=== PATIENT | male | born 1975 | race Caucasian/White ===

== ENCOUNTER 2017-10-14 12:40 | Emergency (ER) | payer BC ==
[2017-10-14 12:44] VITALS: RESP 18; TEMP 97.9
[2017-10-14 13:23] LABS: Basophils % (A) 0 %; Eosinophils # (A) 0.2 k/uL (0-0.7); Eosinophils % (A) 2 %; HCT 46.4 % (39.0-53.0); HGB 16.3 gm/dL (13.0-17.5); Lymphocytes # (A) 2.3 k/uL (1.0-4.8); Lymphocytes % (A) 24 %; MCH 32.9 pg (25.0-35.0); MCHC 35.1 g/dL (31.0-37.0); MCV 93.9 fL (80.0-100.0); Mean Platelet Volume 8.7; Monocytes # (A) 0.5 k/uL (0-1.0); Monocytes % (A) 5 %; Neutrophils # (A) 6.4 k/uL (1.3-7.7); Neutrophils % (A) 67 %; Platelet Count 176 k/uL (150-450); RBC 4.93 m/uL (4.30-5.90); RDW 12.7 % (11.5-15.5); WBC 9.5 k/uL (3.8-10.6)
[2017-10-14 13:32] LABS: ALT 35 U/L (21-72); AST 22 U/L (17-59); Albumin 4.4 g/dL (3.5-5.0); Alkaline Phosphatase 49 U/L (38-126); Amylase 90 U/L (30-110); Anion Gap 15 mmol/L; Blood Urea Nitrogen 13 mg/dL (9-20); Calcium 9.6 mg/dL (8.4-10.2); Carbon Dioxide 22 mmol/L (22-30); Chloride 106 mmol/L (98-107); Glucose 111 mg/dL (74-99); INR 1.1 (<1.2); Lipase 401 U/L (23-300); Partial Thromboplastin Time 25.5 sec (22.0-30.0); Potassium 4.1 mmol/L (3.5-5.1); Prothrombin Time 10.7 sec (9.0-12.0); Sodium 143 mmol/L (137-145); Total Bilirubin 0.4 mg/dL (0.2-1.3); Total Protein 7.2 g/dL (6.3-8.2)
--- NOTE | 2017-10-14 13:40 | ED ---
General Adult HPI - General Chief complaint: Abdominal Pain Stated complaint: Rt side and flank pain Time Seen by Provider: 10/14/17 12:45 Source: patient, RN notes reviewed Mode of arrival: ambulatory Limitations: no limitations - History of Present Illness Initial comments: 42-year-old male presents with right flank pain and right upper quadrant abdominal pain for the past 24 hours. Patient states the pain was constant yesterday evening, was improved this morning when he woke and then has steadily worsened throughout the day. Pain is dull and aching in nature. He has had some nausea and no vomiting or diarrhea. Denies fever or chills. Patient denies any dysuria or hematuria. Denies groin or scrotal pain. Denies cough but has had some dyspnea over the past 2 days as well. - Related Data Home Medications Medication Instructions Recorded Confirmed Carisoprodol [Soma] 350 mg PO Q6H PRN 10/14/17 10/14/17 HYDROcodone/APAP 5-325MG [[place] 1 tab PO TID PRN 10/14/17 10/14/17 5-325] SUMAtriptan SUCCINATE [[place] 6 mg SQ DAILY PRN 10/14/17 10/14/17 Dosepro] Allergies Allergy/AdvReac Type Severity Reaction Status Date / Time No Known Allergies Allergy Verified 10/14/17 13:08 Review of Systems ROS Statement: Those systems with pertinent positive or pertinent negative responses have been documented in the HPI. ROS Other: All systems not noted in ROS Statement are negative. Past Medical History Past Medical History: No Reported History Additional Past Medical History / Comment(s): migraines History of Any Multi-Drug Resistant Organisms: None Reported Past Surgical History: Back Surgery Additional Past Surgical History / Comment(s): neck surgery Past Psychological History: No Psychological Hx Reported Smoking Status: Current every day smoker Past Alcohol Use History: None Reported Past Drug Use History: None Reported General Exam Limitations: no limitations General appearance: alert, in no apparent distress Head exam: Present: atraumatic, normocephalic Eye exam: Present: normal appearance, PERRL, EOMI ENT exam: Present: normal exam Neck exam: Present: normal inspection. Absent: tenderness, meningismus Respiratory exam: Present: normal lung sounds bilaterally. Absent: respiratory distress Cardiovascular Exam: Present: regular rate, normal rhythm GI/Abdominal exam: Present: soft, tenderness (Right upper quadrant tenderness). Absent: distended, guarding, rebound Extremities exam: Present: normal inspection, full ROM. Absent: tenderness Back exam: Present: CVA tenderness (R) Neurological exam: Present: alert, oriented X3, CN II-XII intact. Absent: motor sensory deficit Psychiatric exam: Present: normal affect, normal mood Skin exam: Present: warm, dry, intact. Absent: cyanosis, diaphoretic Course Vital Signs 10/14/17 10/14/17 12:41 13:59 Temperature 97.9 F Pulse Rate 102 H 87 Respiratory 18 18 Rate Blood Pressure 144/93 137/70 O2 Sat by Pulse 99 100 Oximetry Medical Decision Making - Medical Decision Making 42-year-old male with right flank pain and right upper quadrant pain. On examination patient does have some tenderness in the right upper quadrant. Laboratory studies reveal mild elevated lipase at 400, AST and LTR within normal limits. Ultrasound is obtained, this negative for any acute gallbladder or liver pathology. X-ray of the chest and abdomen are unremarkable. Urinalysis is clear with no signs of infection. White blood cell count normal hemoglobin stable. Patient is feeling better on reevaluation skull vital signs remained stable. He will follow-up with his primary care physician return with worsening symptoms. - Lab Data Result diagrams: 10/14/17 13:07 10/14/17 13:07 Lab Results 10/14/17 10/14/17 10/14/17 Range/Units 13:07 13:07 13:07 WBC 9.5 (3.8-10.6) k/uL RBC 4.93 (4.30-5.90) m/uL Hgb 16.3 (13.0-17.5) gm/dL Hct 46.4 (39.0-53.0) % MCV 93.9 (80.0-100.0) fL MCH 32.9 (25.0-35.0) pg MCHC 35.1 (31.0-37.0) g/dL RDW 12.7 (11.5-15.5) % Plt Count 176 (150-450) k/uL Neutrophils % 67 % Lymphocytes % 24 % Monocytes % 5 % Eosinophils % 2 % Basophils % 0 % Neutrophils # 6.4 (1.3-7.7) k/uL Lymphocytes # 2.3 (1.0-4.8) k/uL Monocytes # 0.5 (0-1.0) k/uL Eosinophils # 0.2 (0-0.7) k/uL Basophils # 0.0 (0-0.2) k/uL PT (9.0-12.0) sec INR (<1.2) APTT (22.0-30.0) sec Sodium 143 (137-145) mmol/L Potassium 4.1 (3.5-5.1) mmol/L Chloride 106 (98-107) mmol/L Carbon Dioxide 22 (22-30) mmol/L Anion Gap 15 mmol/L BUN 13 (9-20) mg/dL Creatinine 0.76 (0.66-1.25) mg/dL Est GFR (CKD-EPI)AfAm >90 (>60 ml/min/1.73 sqM) Est GFR (CKD-EPI)NonAf >90 (>60 ml/min/1.73 sqM) Glucose 111 H (74-99) mg/dL Calcium 9.6 (8.4-10.2) mg/dL Total Bilirubin 0.4 (0.2-1.3) mg/dL AST 22 (17-59) U/L ALT 35 (21-72) U/L Alkaline Phosphatase 49 (38-126) U/L NT-Pro-B Natriuret Pep <11 pg/mL Total Protein 7.2 (6.3-8.2) g/dL Albumin 4.4 (3.5-5.0) g/dL Amylase 90 (30-110) U/L Lipase 401 H (23-300) U/L Urine Color Urine Appearance (Clear) Urine pH (5.0-8.0) Ur Specific [place] (1.001-1.035) Urine Protein (Negative) Urine Glucose (UA) (Negative) Urine Ketones (Negative) Urine Blood (Negative) Urine Nitrite (Negative) Urine Bilirubin (Negative) Urine Urobilinogen (<2.0) mg/dL Ur Leukocyte Esterase (Negative) 10/14/17 10/14/17 Range/Units 13:07 15:20 WBC (3.8-10.6) k/uL RBC (4.30-5.90) m/uL Hgb (13.0-17.5) gm/dL Hct (39.0-53.0) % MCV (80.0-100.0) fL MCH (25.0-35.0) pg MCHC (31.0-37.0) g/dL RDW (11.5-15.5) % Plt Count (150-450) k/uL Neutrophils % % Lymphocytes % % Monocytes % % Eosinophils % % Basophils % % Neutrophils # (1.3-7.7) k/uL Lymphocytes # (1.0-4.8) k/uL Monocytes # (0-1.0) k/uL Eosinophils # (0-0.7) k/uL Basophils # (0-0.2) k/uL PT 10.7 (9.0-12.0) sec INR 1.1 (<1.2) APTT 25.5 (22.0-30.0) sec Sodium (137-145) mmol/L Potassium (3.5-5.1) mmol/L Chloride (98-107) mmol/L Carbon Dioxide (22-30) mmol/L Anion Gap mmol/L BUN (9-20) mg/dL Creatinine (0.66-1.25) mg/dL Est GFR (CKD-EPI)AfAm (>60 ml/min/1.73 sqM) Est GFR (CKD-EPI)NonAf (>60 ml/min/1.73 sqM) Glucose (74-99) mg/dL Calcium (8.4-10.2) mg/dL Total Bilirubin (0.2-1.3) mg/dL AST (17-59) U/L ALT (21-72) U/L Alkaline Phosphatase (38-126) U/L NT-Pro-B Natriuret Pep pg/mL Total Protein (6.3-8.2) g/dL Albumin (3.5-5.0) g/dL Amylase (30-110) U/L Lipase (23-300) U/L Urine Color Light Yellow Urine Appearance Clear (Clear) Urine pH 6.5 (5.0-8.0) Ur Specific [place] 1.010 (1.001-1.035) Urine Protein Negative (Negative) Urine Glucose (UA) Negative (Negative) Urine Ketones Negative (Negative) Urine Blood Negative (Negative) Urine Nitrite Negative (Negative) Urine Bilirubin Negative (Negative) Urine Urobilinogen <2.0 (<2.0) mg/dL Ur Leukocyte Esterase Negative (Negative) Disposition Clinical Impression: Abdominal pain, Flank pain Disposition: HOME SELF-CARE Condition: Good Instructions: Abdominal Pain (ED) Is patient prescribed a controlled substance at d/c from ED?: No Referrals: Jim Lao DO [Primary Care Provider] - 1-2 days Time of Disposition: 16:02
--- NOTE | 2017-10-14 14:08 | XR ---
EXAMINATION TYPE: XR chest 2V DATE OF EXAM: 10/14/2017 COMPARISON: 09/02/2011 HISTORY: Shortness of breath and right upper quadrant pain TECHNIQUE: Frontal and lateral views of the chest are obtained. FINDINGS: There is no focal air space opacity, pleural effusion, or pneumothorax seen. The cardiac silhouette size is upper limits of normal. The osseous structures are intact. IMPRESSION: No acute cardiopulmonary process.
--- NOTE | 2017-10-14 14:14 | XR ---
EXAMINATION TYPE: XR KUB DATE OF EXAM: 10/14/2017 1:58 PM CLINICAL HISTORY: Shortness of breath and right upper quadrant pain for 2 days TECHNIQUE: Single upright image of the abdomen is obtained. COMPARISON: None. FINDINGS: Scattered gas is seen in non-distended small bowel loops. Gas and fecal material is seen in non-distended colon. There is no visceromegaly, pneumoperitoneum, or abnormal calcification apprecia surya. The lung bases are clear and the osseous structures are intact. There is bilateral mild femoral acetabular arthropathy demonstrated as acetabular roof sclerosis. Minimal levoscoliotic curvature of the lumbar spine may relate to patient positioning. IMPRESSION: Nonobstructive bowel gas pattern.
[2017-10-14] MEDS ORDERED: KETOROLAC 30 MG/ML 1 ML VIAL IVP STA (14:29)
[2017-10-14] MEDS ORDERED: SODIUM CHLORIDE 0.9% 500 ML IV ONE (14:29)
[2017-10-14] MEDS ORDERED: SODIUM CHLORIDE 0.9% 1,000 ML IV ONE (15:19)
[2017-10-14 15:47] LABS: Appearance,Urine Clear (Clear); Bilirubin,Urine Negative (Negative); Blood,Urine Negative (Negative); Color,Urine Light Yellow; Glucose,Urine (UA) Negative (Negative); Ketones,Urine Negative (Negative); Leukocyte Esterase,Urine Negative (Negative); Nitrite,Urine Negative (Negative); PH, Urine 6.5 (5.0-8.0); Protein,Urine Negative (Negative); Urobilinogen,Urine <2.0 mg/dL (<2.0)
--- NOTE | 2017-10-14 15:54 | US ---
EXAMINATION TYPE: US gallbladder DATE OF EXAM: 10/14/2017 COMPARISON: NONE CLINICAL HISTORY: Abdominal pain. EXAM MEASUREMENTS: Liver Length: 14.1 cm Gallbladder Wall: 0.3 cm CBD: 0.3 cm Right Kidney: 10.2 x 5.3 x 5.0 cm Pancreas: Obscured by bowel gas Liver: wnl Gallbladder: wnl Evidence for sonographic Tesfaye's sign: no CBD: wnl Right Kidney: wnl IMPRESSION: No sonographic evidence of cholelithiasis, acute cholecystitis, or right-sided hydronephr osis.
[2017-10-14 16:36] VITALS: BP 126/74; PULSE 74
== END 2017-10-14 16:34 | disposition home or self-care (01) ==
LOC: EC 12:40
DX: R10.11 Right upper quadrant pain (principal); R74.8 Abnormal levels of other serum enzymes; R11.0 Nausea; R06.00 Dyspnea, unspecified; F17.200 Nicotine dependence, unspecified, uncomplicated; Z53.8 Procedure and treatment not carried out for other reasons
CPT/HCPCS: 36415; 83880; 80053; 82150; 83690; 85025; 85610; 85730; 81003; 71046; 74018; 76705; 99284; 96374; J1885

== ENCOUNTER 2018-08-10 07:59 | Emergency (ER) | payer BC ==
[2018-08-10 08:02] VITALS: TEMP 97.8
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
[2018-08-10] MEDS ORDERED: SODIUM CHLORIDE 0.9% 1,000 ML IV STA (08:24)
[2018-08-10] MEDS ORDERED: ONDANSETRON 4 MG/2 ML VIAL IVP STA (08:25)
[2018-08-10] MEDS ORDERED: KETOROLAC 30 MG/ML 1 ML VIAL IVP STA (08:25)
[2018-08-10 08:49] LABS: Basophils # (A) 0.1 k/uL (0-0.2); Basophils % (A) 1 %; Eosinophils # (A) 0.3 k/uL (0-0.7); Eosinophils % (A) 4 %; HCT 47.9 % (39.0-53.0); HGB 15.7 gm/dL (13.0-17.5); Lymphocytes # (A) 2.2 k/uL (1.0-4.8); Lymphocytes % (A) 26 %; MCH 31.7 pg (25.0-35.0); MCHC 32.8 g/dL (31.0-37.0); MCV 96.9 fL (80.0-100.0); Mean Platelet Volume 8.7; Monocytes # (A) 0.4 k/uL (0-1.0); Monocytes % (A) 4 %; Neutrophils # (A) 5.5 k/uL (1.3-7.7); Neutrophils % (A) 65 %; Platelet Count 190 k/uL (150-450); RBC 4.95 m/uL (4.30-5.90); RDW 12.8 % (11.5-15.5); WBC 8.5 k/uL (3.8-10.6)
[2018-08-10] MEDS ORDERED: FAMOTIDINE 20 MG/2 ML VIAL IV SCH (09:00)
[2018-08-10 09:02] LABS: ALT 39 U/L (21-72); AST 31 U/L (17-59); Albumin 4.4 g/dL (3.5-5.0); Alkaline Phosphatase 34 U/L (38-126); Amylase 55 U/L (30-110); Anion Gap 8 mmol/L; Blood Urea Nitrogen 11 mg/dL (9-20); Calcium 9.7 mg/dL (8.4-10.2); Carbon Dioxide 23 mmol/L (22-30); Chloride 108 mmol/L (98-107); Glucose 115 mg/dL (74-99); Lipase 81 U/L (23-300); Sodium 139 mmol/L (137-145); Total Bilirubin 0.8 mg/dL (0.2-1.3); Total Protein 7.7 g/dL (6.3-8.2)
[2018-08-10 09:07] LABS: Potassium 5.1 mmol/L (3.5-5.1)
--- NOTE | 2018-08-10 09:51 | CT ---
EXAMINATION TYPE: CT abdomen pelvis w con DATE OF EXAM: 08/10/2018 COMPARISON: NONE HISTORY: 43-year-old male Right flank pain TECHNIQUE: Contiguous axial scanning of the abdomen and pelvis following administration of 100 ml Iso will 300 IV contrast. Delayed images through the kidneys and coronal/sagittal reconstructions perform ed. CT DLP: 783.1 mGycm Automated exposure control for dose reduction was used. FINDINGS: Heart normal size without pericardial effusion. Tiny hiatal hernia. Some scattered dependent atelecta sis is noted. No pleural effusion. No focal liver lesion or biliary ductal dilatation. Portal venous system is patent. Gallbladder, adrenal glands, kidneys, spleen, and pancreas appear within normal limits. The second portion the duodenum is redundant incidentally. No dilated small bowel, free fluid, or quiana e air. No mesenteric or retroperitoneal lymphadenopathy. Tiny fatty umbilical hernia. Normal appendix. Mild stool burden. No pericolonic inflammatory change. Bladder is urine distended. Left-sided pelvic phlebolith. Prostate gland measures 4.5 cm wide with so me central calcifications. No abnormal fluid collection in the pelvis or pelvic lymphadenopathy. Bones: Mild subarticular sclerosis inferior SI joints suggesting some degenerative change. Bilateral L5 pars defects with trace grade 1 anterolisthesis at L5-S1. IMPRESSION: 1. TINY HIATAL HERNIA AND A SMALL FATTY UMBILICAL HERNIA. 2. NO ACUTE INFLAMMATORY PROCESS IDENTIFIED IN THE ABDOMEN OR PELVIS TO EXPLAIN THE PATIENT'S PAIN. 3. NO NEPHROLITHIASIS OR HYDRONEPHROSIS. 4. BILATERAL L5 PARS DEFECTS WITH GRADE 1 ANTEROLISTHESIS AT L5-S1.
[2018-08-10 10:06] LABS: Appearance,Urine Clear (Clear); Bilirubin,Urine Negative (Negative); Blood,Urine Negative (Negative); Color,Urine Yellow; Glucose,Urine (UA) Negative (Negative); Ketones,Urine Negative (Negative); Leukocyte Esterase,Urine Negative (Negative); Nitrite,Urine Negative (Negative); Protein,Urine Negative (Negative); Specific Gravity,Urine 1.026 (1.001-1.035); Urobilinogen,Urine <2.0 mg/dL (<2.0)
[2018-08-10] MEDS ORDERED: MAG HYDROX/AL HYDROX/SIMETH 30 ML, HYOSCYAMINE ELIXIR 10 ML, CIMETIDINE HCL 300 MG, LID... PO STA ×4 (10:13)
[2018-08-10] MEDS ORDERED: MORPHINE SULFATE 4 MG/ML SYRINGE IVP STA (10:13)
[2018-08-10 10:32] VITALS: RESP 18
[2018-08-10 11:35] VITALS: BP 134/83; PULSE 82
== END 2018-08-10 11:32 | disposition home or self-care (01) ==
LOC: EC 07:59
DX: K44.9 Diaphragmatic hernia without obstruction or gangrene (principal); K42.9 Umbilical hernia without obstruction or gangrene; M54.16 Radiculopathy, lumbar region; F17.200 Nicotine dependence, unspecified, uncomplicated; Z87.19 Personal history of other diseases of the digestive system; Z87.442 Personal history of urinary calculi; Z98.890 Other specified postprocedural states
CPT/HCPCS: 36415; 74177; 80053; 81003; 82150; 83690; 85025; 96361; 96374; 96375; 99284